=== PATIENT | female | born 1960 | race Caucasian/White ===

== ENCOUNTER → 2019-09-30 08:37 | Outpatient (BNVA) | payer SELFPAY | PROVIDERS: Referring Provider Nurse Practitioner Family; Visit Provider Dermatology | DX: C44.519 Basal cell carcinoma of skin of other part of trunk (principal); L82.0 Inflamed seborrheic keratosis; L81.4 Other melanin hyperpigmentation; Z12.83 Encounter for screening for malignant neoplasm of skin | CPT/HCPCS: 17000; 17003; 99202 ==

== ENCOUNTER → 2019-10-16 08:55 | Outpatient (BNVA) | payer SELFPAY | PROVIDERS: Visit Provider Dermatology | DX: C44.91 Basal cell carcinoma of skin, unspecified (principal); D48.9 Neoplasm of uncertain behavior, unspecified | CPT/HCPCS: 11601; 12031; 88304; 88305 ==

== ENCOUNTER → 2019-10-21 10:40 | Outpatient (BNVA) | payer SELFPAY | PROVIDERS: Visit Provider Dermatology | DX: Z48.02 Encounter for removal of sutures (principal) | CPT/HCPCS: 99024 ==

== ENCOUNTER 2024-08-29 06:18 | Outpatient (CLI) | payer SELFPAY ==
--- NOTE | 2024-08-29 06:23 | USCV_ITS ---
Amarilys Cruz Age: 64 Gender: F : 1960 Exam Date: 08/29/2024 06:28 Ordering Phys: Allyn Rivera NP Technologist: MICHEAL [place] [facility] [place]: Pre-syncope BP: 110 / 65 HR: 60 Rhythm: Sinus Technical Quality: Adequate MEASUREMENTS (Male / Female) Normal Values 2D ECHO LV Diastolic Diameter PLAX 3.7 cm 4.2 - 5.9 / 3.9 - 5.3 cm IVS Diastolic Thickness 0.7 cm 0.6 - 1.0 / 0.6 - 0.9 cm IVS Systolic Thickness 1.2 cm LVPW Diastolic Thickness 0.9 cm 0.6 - 1.0 / 0.6 - 0.9 cm LVPW Systolic Thickness 1.2 cm LVOT Diameter 1.8 cm LV Ejection Fraction 2D Teich 62.8 % LV Ejection Fraction MOD 4C 74.5 % LV Ejection Fraction MOD 2C 68.4 % LV Ejection Fraction 2C AL 68.4 % LA Diameter 2.6 cm RA Systolic Volume 4C AL 24.0 ml RA Systolic Volume 4C MOD 23.7 ml LA Sys Volume AL 37.6 cm cubed LA Sys Volume Index AL 25.3 cm cubed/m squared Aorta at Sinotubular Diameter 1.7 cm IVC Diameter 2.0 cm M-MODE LA Ao Ratio MM 1.2 AV Cusp Separation MM 1.2 cm DOPPLER AV Peak Velocity 226.2 cm/s LVOT Peak Velocity 112.0 cm/s AV Area Cont Eq vti 2.0 cm squared AV Area Cont Eq pk 1.2 cm squared MV Peak Velocity 92.0 cm/s MV Area PHT 4.0 cm squared Mitral E to A Ratio 1.5 TV Peak Velocity 131.0 cm/s TR Peak Velocity 171.0 cm/s TR Peak Gradient 11.7 mmHg TV Peak E Velocity 101.0 cm/s PV Peak Velocity 73.0 cm/s FINDINGS Left Ventricle Normal left ventricular size, systolic function and wall thickness, with no regional wall motion abnormalities. Estimated LVEF 65%. Right Ventricle Normal right ventricular size and systolic function. Right Atrium Normal right atrial size. Left Atrium Normal left atrial size. Mitral Valve Structurally normal mitral valve. Trace mitral valve regurgitation. Aortic Valve Structurally normal trileaflet aortic valve. Mild aortic valve regurgitation. Tricuspid Valve Structurally normal tricuspid valve. Trace tricuspid valve regurgitation. Pulmonic Valve Pulmonic valve not well visualized. Trace pulmonary valve regurgitation. Pericardium No pericardial effusion. Aorta Normal size aortic root and proximal ascending aorta. IVC Normal IVC dimension with >50% respiratory change of the inferior vena cava. CONCLUSIONS Normal left ventricular systolic function. Estimated LVEF normal 65%. Normal RV and RV systolic function. Mild AR otherwise no significant valvular abnormality noted. Normal right heart and pulmonary pressures. Bertram Mo MD (Electronically Signed) Final Date: 29 August 2024 16:32 S
== END 2024-08-29 06:19 | disposition home or self-care (01) ==
PROVIDERS: Visit Provider Nurse Practitioner Family
DX: R55 Syncope and collapse (principal); R00.2 Palpitations; R63.4 Abnormal weight loss; E03.9 Hypothyroidism, unspecified; I35.1 Nonrheumatic aortic (valve) insufficiency
CPT/HCPCS: 93306